=== PATIENT | male | born 1955 | race Asian ===

== ENCOUNTER 2021-10-03 05:50 | Day surgery (SDC) | payer OTHER, SELFPAY ==
[~2021-10-03] VITALS: Ht 170.2 cm; Wt 68.0 kg
[2021-10-03] MEDS ORDERED: LIDOCAINE 2% 100 MG/5 ML UJET TP ONE (07:40)
[2021-10-03] MEDS ORDERED: fentaNYL citrate 0.05 MG/ML VIAL ONE (07:40)
[2021-10-03] MEDS ORDERED: fentaNYL citrate 0.05 MG/ML VIAL IVP ONE (09:05)
== END 2021-10-03 09:05 | disposition home or self-care (01) ==
LOC: MDS 05:50 → MMU 05:50 → MDS 09:05
PROVIDERS: ATTEND Internal Medicine Gastroenterology
DX: Z12.11 Encounter for screening for malignant neoplasm of colon (principal); K57.30 Diverticulosis of large intestine without perforation or abscess without bleeding; Z87.891 Personal history of nicotine dependence; Z79.899 Other long term (current) drug therapy
CPT/HCPCS: 45378; 82948; J3010